=== PATIENT | male | born 1985 | race Two or more races ===

== ENCOUNTER 2022-09-03 16:26 | Emergency (ER) | payer MEDICARE, MEDICAID ==
[2022-09-03] MEDS ORDERED: Acetaminophen/HYDROcodone 325-10 MG Tab PO ONE (19:36)
[2022-09-03] MEDS ORDERED: Take Home: Acetaminophen/Codeine 300 MG/30 MG, 5 Tab Pack PO ONE (20:18)
== END 2022-09-03 20:50 ==
LOC: VM.ED 16:26 → MERGE 16:26 → VM.ED 20:50
DX: S92.342A Displaced fracture of fourth metatarsal bone, left foot, initial encounter for closed fracture (principal); S92.352A Displaced fracture of fifth metatarsal bone, left foot, initial encounter for closed fracture; Y93.41 Activity, dancing
CPT/HCPCS: 73610-LT; 73630-LT; 99283; A9270-GY